=== PATIENT | female | born 1955 | race Caucasian/White ===

== ENCOUNTER 2024-07-22 16:29 | Emergency (ER) | payer MEDICARE, OTHER, SELFPAY ==
[2024-07-22 16:41] VITALS: BP 143/77; PULSE 64; RESP 20; TEMP 36.6; O2SAT 100; BMI 24.1
--- NOTE | 2024-07-22 17:07 | CRLHL7_ITS ---
For Patients: As a result of the Cures Act, medical imaging exams and procedure reports are released immediately into your electronic medical record. You may view this report before your referring provider. If you have questions, please contact your health care provider. INDICATION: Chest pain. TECHNIQUE: Chest/right ribs, 4 views. COMPARISON: None. FINDINGS: Cardiovascular and mediastinum: Heart size and vasculature are normal in caliber and appearance. Left chest wall pacemaker device. Lungs and pleural spaces: Lungs are clear. No sign of infiltrate or mass. No sign of pleural effusion. No pneumothorax. Bones and soft tissues: No significant findings. IMPRESSION: No acute or significant findings. Dictated by Nehemias Velasquez MD @ 07/22/2024 5:45:23 PM (Electronically Signed)
--- NOTE | 2024-07-22 17:08 | ED.FALL ---
HPI - Fall General Chief Complaint: Fall/Minor Trauma Stated Complaint: Fall from standing, hit R side/head, no LOC Time Seen by Provider: 07/22/24 16:33 History of Present Illness HPI Narrative: This 68-year-old female comes in for evaluation of injuries that occurred yesterday. She tripped over a step and landed on her right side. She did bump her head just above her right eyebrow but did not have loss of consciousness. She has an abrasion and in this area and some underlying swelling. She also reports some pain in her right arm and mostly in her right ribs. She does not report any shortness of breath and arrives here with normal vital signs. She is not on any anticoagulants. Related Data Home Medications ?Medication ?Instructions ?Recorded ?Confirmed HCTZ 07/22/24 amlodipine 10 mg tablet 10 mg PO DAILY 07/22/24 07/22/24 bupropion HCl 300 mg 24 hr tablet, 300 mg PO DAILY 07/22/24 07/22/24 extended release lisinopril 10 mg tablet 10 mg PO DAILY 07/22/24 07/22/24 metoprolol succinate 50 mg 50 mg PO DAILY 07/22/24 07/22/24 tablet,extended release 24 hr Previous Rx's ?Medication ?Instructions ?Recorded ketorolac 10 mg tablet 10 mg PO TID 5 days #15 tabs 07/22/24 Allergies Allergy/AdvReac Type Severity Reaction Status Date / Time No Known Drug Allergies Allergy Verified 07/22/24 16:46 Review of Systems Status of ROS: Reports: 10 or more systems reviewed and unremarkable except as noted in History and below Narrative: Constitutional: No fevers, no weight gain or loss. Eyes: No discharge. No vision changes. HENT: No congestion, no sore throat, no ear pain. Cardiovascular: No palpitations. She has a pacemaker. Respiratory: No shortness of breath, no wheezes, no cough. Gastrointestinal: No abdominal pain, no vomiting, no diarrhea. Genitourinary: No dysuria, no hematuria. Musculoskeletal: Normal range of motion. Skin: No rashes, no pruritis. Neurological: No dizziness, weakness, sensory change, speech change. Endo/Heme/Allergies: No bruising or bleeding. No polydipsia. Pysch: no suicidality, no anxiety, no insomnia. All other systems reviewed and are negative. PFSH PFSH Social History Smoking Status: Never smoker Do you use any of these nicotine containing products: None Second hand tobacco smoke exposure: No How often do you have a drink containing alcohol: never How often do you have six or more drinks on one occasion: Never AUDIT-C Alcohol total score: 0 Non-prescribed substance use: denies use service: No Exam Narrative: Exam Narrative: Constitutional: Well-developed, well-nourished, no acute distress. HEENT: Mild swelling overlying area under her right eyebrow with a small abrasion. Neck: Normal range of motion. Nontender. Supple. Heart: Regular. No murmurs. Normal rate. Intact distal pulses. Lungs: Clear to auscultation. No chest discomfort. No wheezes, rhonchi, or rales. Abdomen: Normal bowel sounds. Nontender. No rebound tenderness. Genitalia: Deferred. Back: No midline tenderness. Normal range of motion. Extremities: Normal range of motion. Diffuse pain in her right arm. Skin: Intact. No rash. Warm. No erythema or pallor. Neurologic: No altered sensation. No weakness. Alert and oriented. Psychiatric: No suicidality. No anxiety or depression. No insomnia. Nursing notes and vitals signs are reviewed. Const: Vital Signs, click to edit/add: Vital Signs - 24 hr 07/22/24 16:41 Temperature 97.9 F Pulse Rate [Pulse Oximeter] 64 Respiratory Rate 20 Blood Pressure [Le ft Forearm] 143/77 H Pulse Oximetry 100 Oxygen Delivery Me thod Room Air Course Vital Signs Vital signs: Initial Vital Signs Temperature 97.9 F 07/22/24 16:41 Temperature Source Temporal Artery Scan 07/22/24 16:41 Pulse Rate 64 07/22/24 16:41 Pulse Rhythm Regular 07/22/24 16:41 Respiratory Rate 20 07/22/24 16:41 Blood Pressure 143/77 H 07/22/24 16:41 Blood Pressure Mean 99 07/22/24 16:41 Blood Pressure Position Sitting 07/22/24 16:41 Pulse Oximetry 100 07/22/24 16:41 Oxygen Delivery Method Room Air 07/22/24 16:41 Vital Signs Temperature 97.9 F 07/22/24 16:41 Pulse Rate 64 07/22/24 16:41 Respiratory Rate 20 07/22/24 16:41 Blood Pressure 143/77 H 07/22/24 16:41 Pulse Oximetry 100 07/22/24 16:41 Oxygen Delivery Method Room Air 07/22/24 16:41 Temperature 97.9 F 07/22/24 16:41 Pulse Rate 64 07/22/24 16:41 Respiratory Rate 20 07/22/24 16:41 Blood Pressure 143/77 H 07/22/24 16:41 Pulse Oximetry 100 07/22/24 16:41 Oxygen Delivery Method Room Air 07/22/24 16:41 MDM - Fall MDM Narrative Medical decision making narrative: This patient comes in for evaluation and treatment of injuries from a fall that occurred yesterday. She did not have loss of consciousness. She did bump her head and has some mild swelling and an abrasion over her right eyebrow. There is no need for any repair of this wound. I did discuss nexus rules for head injury and in a process of shared decision-making she declined any imaging of her head. Her right arm has some diffuse tenderness but has full range of motion. Her most significant symptoms come from her right ribs. A series of x-rays are obtained of the right ribs and chest and returned with no sign of fracture or pneumothorax. The patient received a prescription for Toradol. She can also use Tylenol as needed and directed. Imaging Data Chest x-ray: Radiologist's impression: No acute or significant findings. Discharge Plan Discharge Clinical Impression: Contusion of rib on right side, Closed head injury Patient Disposition: Home, Self-Care Condition: Stable Additional Instructions: Take medication as needed and directed. Increase activity as tolerated. Follow up with MD return if worsening. Prescriptions: New ketorolac 10 mg tablet 10 mg PO TID 5 Days Qty: 15 0RF No Action lisinopril 10 mg tablet 10 mg PO DAILY metoprolol succinate 50 mg tablet extended release 24 hr 50 mg PO DAILY HCTZ bupropion HCl 300 mg tablet extended release 24 hr 300 mg PO DAILY amlodipine 10 mg tablet 10 mg PO DAILY Stand Alone Forms: [email or web address] Info Instructions
== END 2024-07-22 18:10 | disposition home or self-care (01) ==
PROVIDERS: Emergency Provider Emergency Medicine Emergency Medical Services; PCP Family Medicine
DX: S20.211A Contusion of right front wall of thorax, initial encounter (principal); S09.90XA Unspecified injury of head, initial encounter; W01.0XXA Fall on same level from slipping, tripping and stumbling without subsequent striking against object, initial encounter
CPT/HCPCS: 71101; 99283; 99284